=== PATIENT | female | born 1965 | race Caucasian/White ===

== ENCOUNTER 2022-08-31 07:10 | Inpatient (IN) | payer MEDICAID ==
[~2022-08-31] VITALS: Ht 162.6 cm; Wt 44.9 kg
[2022-08-31 08:24] LABS: CHLORIDE 105 mEq/L (98-107)
[2022-08-31 08:32] LABS: ETHANOL BLOOD < 10 mg/dL
[2022-08-31 08:46] LABS: EOSINOPHILS % 3.9 % (0.0-5.0); HEMATOCRIT. 36.1 % (36.0-48.0); HEMOGLOBIN. 11.9 g/dL (12.0-16.0); LYMPHOCYTES % 33.5 % (20.0-50.0); MEAN CORPUSCULAR HEMOGLOBIN 29.8 pg (28.0-32.0); MEAN CORPUSCULAR VOLUME 90.8 fL (81.0-99.0); MEAN PLATELET VOLUME 8.8 fl (7.4-10.4); MONOCYTES % 7.7 % (2.0-8.0); NEUTROPHILS % 53.9 % (40.0-76.0); PLATELET 278 x1000/uL (130-400); RED BLOOD CELL COUNT 3.97 mill/uL (4.2-5.4); RED CELL DISTRIBUTION WIDTH 13.3 % (11.6-14.6)
[2022-08-31] MEDS ORDERED: ASPIRIN 325MG EC TABLET PO ONE (09:00)
[2022-08-31] MEDS ORDERED: IOHEXOL-350 100 ML BOTTLE ONE (09:14)
[2022-08-31] MEDS ORDERED: KETOROLAC 15MG/ML VIAL IV PRN (15:00)
[2022-08-31] MEDS ORDERED: NITROGLYCERIN 0.4MG TABLET SL SL PRN (15:00)
[2022-08-31] MEDS ORDERED: NA PHOS,M-B/NA PHOS,DI-BA ENEMA 118ML PR PRN (15:00)
[2022-08-31] MEDS ORDERED: CLONIDINE 0.1MG TABLET PO PRN (15:00)
[2022-08-31] MEDS ORDERED: ONDANSETRON HCL 4MG/2ML INJ IV PRN (15:00)
[2022-08-31] MEDS ORDERED: ACETAMINOPHEN 325MG TABLET PO PRN (15:00)
[2022-08-31] MEDS ORDERED: IPRATROPIUM/ALBUTEROL 0.5-3(2.5)MG/3ML NEB NEB PRN (15:00)
[2022-08-31] MEDS ORDERED: DEXTROSE 50% WATER 50ML SYRINGE IV PRN (15:00)
[2022-08-31] MEDS ORDERED: MAGNESIUM/ALUMINUM HYDROXIDE/SIMETHICONE 30ML UDC PO PRN (15:00)
[2022-08-31 15:39] LABS: T4 FREE 1.36 ng/dL (0.76-1.46)
[2022-08-31 16:09] LABS: VITAMIN B12 SERUM 547 pg/mL (211-911)
[2022-08-31] MEDS ORDERED: DOCUSATE SODIUM 100MG CAPSULE PO PRN (17:00)
[2022-08-31] MEDS: BLOOD SUGAR DIAGNOSTIC STRIP TEST SCH ×2 (17:06→21:03)
[2022-08-31] MEDS: ENOXAPARIN 40MG/0.4ML SYR SUBCUT SCH (17:11)
[2022-08-31] MEDS: GUAIFENESIN 200MG/10ML SUGAR FREE UDC PO PRN ×2 (18:36→23:09)
[2022-08-31] MEDS: INSULIN LISPRO 100 UNITS/ML SUBCUT SCH ×2 (18:36→21:09)
[2022-08-31 20:00] VITALS: BP 148/73
[2022-08-31] MEDS ORDERED: ZOLPIDEM TARTRATE 5MG TABLET PO PRN (21:00)
[2022-08-31] MEDS: FAMOTIDINE 20MG TABLET PO SCH (21:07)
[2022-08-31] MEDS: ACETAMINOPHEN 325MG TABLET PO PRN (23:09)
[2022-09-01] VITALS: BP 116/76
[2022-09-01] MEDS ORDERED: GLIM1TAB PO (01:03)
[2022-09-01] MEDS ORDERED: LISI10TA26 PO (01:03)
[2022-09-01] MEDS ORDERED: ASPI-1497 PO (01:03)
[2022-09-01] MEDS ORDERED: TICA90TA PO (01:03)
[2022-09-01] MEDS ORDERED: METF750T46 PO (01:03)
[2022-09-01] MEDS ORDERED: ATOR20TA65 PO (01:03)
[2022-09-01] MEDS ORDERED: LEVO75TA7 PO (01:03)
[2022-09-01 04:00] VITALS: BP 121/79
[2022-09-01] MEDS: BLOOD SUGAR DIAGNOSTIC STRIP TEST SCH ×4 (05:49→20:33)
[2022-09-01] MEDS: ACETAMINOPHEN 325MG TABLET PO PRN ×2 (05:50→20:32)
[2022-09-01] MEDS: GUAIFENESIN 200MG/10ML SUGAR FREE UDC PO PRN ×3 (05:50→20:32)
[2022-09-01] MEDS: INSULIN LISPRO 100 UNITS/ML SUBCUT SCH ×4 (06:45→20:40)
[2022-09-01 07:22] LABS: BASOPHILS % 0.7 % (0.0-2.0); EOSINOPHILS % 1.5 % (0.0-5.0); HEMATOCRIT. 35.9 % (36.0-48.0); HEMOGLOBIN. 12.2 g/dL (12.0-16.0); LYMPHOCYTES % 32.3 % (20.0-50.0); MEAN CORPUSCULAR HEMOGLOBIN 29.3 pg (28.0-32.0); MEAN CORPUSCULAR VOLUME 86.3 fL (81.0-99.0); MEAN PLATELET VOLUME 8.9 fl (7.4-10.4); MONOCYTES % 6.7 % (2.0-8.0); NEUTROPHILS % 58.8 % (40.0-76.0); PLATELET 306 x1000/uL (130-400); RED BLOOD CELL COUNT 4.16 mill/uL (4.2-5.4); RED CELL DISTRIBUTION WIDTH 13.2 % (11.6-14.6)
[2022-09-01 08:00] VITALS: BP 139/79
[2022-09-01 08:37] LABS: CREATINE KINASE 45 IU/L (26-192); CREATINE KINASE MB FRACTION < 1.0 ng/mL (0.5-3.6)
[2022-09-01] MEDS: ASPIRIN 325MG EC TABLET PO SCH (08:51)
[2022-09-01] MEDS: FAMOTIDINE 20MG TABLET PO SCH ×2 (08:53→20:32)
[2022-09-01 11:31] LABS: CHLORIDE 104 mEq/L (98-107)
[2022-09-01 11:42] LABS: PHOSPHORUS 4.4 mg/dL (2.5-4.9)
[2022-09-01 12:00] VITALS: BP 127/81
[2022-09-01] MEDS: ENOXAPARIN 40MG/0.4ML SYR SUBCUT SCH (15:00)
[2022-09-01 16:00] VITALS: BP 138/78
[2022-09-01 16:55] LABS: CREATINE KINASE 36 IU/L (26-192)
[2022-09-01 20:00] VITALS: BP 152/81
[2022-09-02] VITALS: BP 146/75
[2022-09-02 04:00] VITALS: BP 142/75
[2022-09-02 05:05] VITALS: BP 142/75
[2022-09-02] MEDS: BLOOD SUGAR DIAGNOSTIC STRIP TEST SCH ×2 (06:02→11:40)
[2022-09-02] MEDS: INSULIN LISPRO 100 UNITS/ML SUBCUT SCH ×2 (06:02→12:49)
[2022-09-02] MEDS: GUAIFENESIN 200MG/10ML SUGAR FREE UDC PO PRN ×2 (06:03→11:28)
[2022-09-02 08:00] VITALS: BP 158/78
[2022-09-02] MEDS: FAMOTIDINE 20MG TABLET PO SCH (09:23)
[2022-09-02] MEDS: ASPIRIN 325MG EC TABLET PO SCH (09:23)
[2022-09-02 12:00] VITALS: BP 141/78
[2022-09-02 14:12] VITALS: BP 141/78
[2022-09-02] MEDS: ENOXAPARIN 40MG/0.4ML SYR SUBCUT SCH (15:00)
[2022-09-03] MEDS ORDERED: LEVOTHYROXINE SODIUM 75MCG TABLET PO SCH (06:40)
== END 2022-09-02 18:02 | disposition home or self-care (01) | DRG 47 ==
LOC: ER 07:10 → 7EST 11:33 → EDBEDREQSVC 11:34 → EDBEDREQ 11:34 → EDBEDREQTM 11:34 → ENRESERV 16:06
PROVIDERS: ADMIT Internal Medicine; ATTEND Internal Medicine
DX: G45.9 Transient cerebral ischemic attack, unspecified (principal); E44.1 Mild protein-calorie malnutrition; D63.8 Anemia in other chronic diseases classified elsewhere; G81.94 Hemiplegia, unspecified affecting left nondominant side; E11.9 Type 2 diabetes mellitus without complications; E03.9 Hypothyroidism, unspecified; E05.90 Thyrotoxicosis, unspecified without thyrotoxic crisis or storm; Z20.822 Contact with and (suspected) exposure to COVID-19; I10 Essential (primary) hypertension; Z68.1 Body mass index [BMI] 19.9 or less, adult; Z82.49 Family history of ischemic heart disease and other diseases of the circulatory system; Z83.3 Family history of diabetes mellitus; Z86.73 Personal history of transient ischemic attack (TIA), and cerebral infarction without residual deficits; Z79.4 Long term (current) use of insulin; R29.701 NIHSS score 1
CPT/HCPCS: 36415; 70496; 70498; 70544; 70553; 71045; 80053; 80061; 80320; 82550; 82553; 82607; 82746; 82962; 83036; 83540; 83550; 83735; 84100; 84439; 84443; 84484; 85025; 87426; 93005; 93306; 93970; 99291; J1650; J1815; Q9967; G0480

== ENCOUNTER 2025-07-31 02:35 | Emergency (ER) | payer MEDICAID ==
[~2025-07-31] VITALS: Ht 167.6 cm; Wt 70.2 kg
[~2025-07-31 02:35] MED LIST: ASPI-1497 PO; ATOR20TA65 PO; GLIM1TAB55 PO; LEVO75TA7 PO; LISI10TA26 PO; METF750T46 PO; TICA90TA PO
[2025-07-31 02:38] VITALS: O2SAT 100
[2025-07-31] MEDS ORDERED: CYCLOBENZAPRINE 10MG TABLET PO ONE (04:00)
[2025-07-31] MEDS: KETOROLAC 15MG/ML VIAL IM ONE (04:58)
[2025-07-31] MEDS ORDERED: NAPR-1176 MT (05:02)
[2025-07-31] MEDS ORDERED: LIDO-53 TP (05:02)
[2025-07-31 05:26] VITALS: BP 137/71; PULSE 67; RESP 16; TEMP 36.7; O2SAT 100
[2025-07-31] MEDS ORDERED: IOHEXOL-350 100 ML BOTTLE ONE (23:08)
== END 2025-07-31 05:28 | disposition home or self-care (01) ==
LOC: ER 02:35
DX: M25.511 Pain in right shoulder (principal); E11.9 Type 2 diabetes mellitus without complications; E05.90 Thyrotoxicosis, unspecified without thyrotoxic crisis or storm; Z79.899 Other long term (current) drug therapy; Z79.84 Long term (current) use of oral hypoglycemic drugs; Z79.82 Long term (current) use of aspirin; Z79.1 Long term (current) use of non-steroidal anti-inflammatories (NSAID); Z98.890 Other specified postprocedural states
CPT/HCPCS: 99284; 72100; 73030; 96372; J1885; Q9967